=== PATIENT | male | born 1985 | race Caucasian/White ===

== ENCOUNTER 2021-07-30 22:13 | Emergency (ER) | payer OTHER ==
[~2021-07-30] VITALS: Ht 180.3 cm; Wt 140.6 kg
[2021-07-31] MEDS ORDERED: BACTRIM DS TAB1 EACH PO (00:22)
[2021-07-31] MEDS ORDERED: LASIX20 MG PO ×2 (00:22→02:44)
== END 2021-07-31 02:49 | disposition home or self-care (01) ==
LOC: ED 22:13
DX: L03.116 Cellulitis of left lower limb (principal)
CPT/HCPCS: 36415; 80053; 83605; 85025; 85610; 93971; 96365; 96366; 99284-25; J3370; J7030